=== PATIENT | male | born 1940 | race Caucasian/White ===

== ENCOUNTER 2016-05-18 23:01 | Inpatient (IN) | payer BC ==
--- NOTE | ~2016-05-18 | EGD ---
EGD REPORT [facility] [address] [address] NAME: MOHINDER CASILLAS : [birth year] STATUS : ADM Cherrie PAT#: [id number] AGE: 75 ADM/REG DATE : 05/19/16 MR#: [id number] REPORT SERV DATE: 05/21/16 DICTATED BY: CHETNA CABRERA DATE: 05/21/16 REPORT STATUS : Draft TRANSCRIBED BY: [employer] DATE: 05/21/16 Endoscopy Center Patient Name: Mohinder Casillas Date of : 1940 Attending MD: CHETNA CABRERA, Procedure Date No Time: 05/21/2016 Procedure: Colonoscopy Indications: Hematochezia, Anemia Referring MD: MARY MEYER Medicines: Monitored Anesthesia Care Complications: No immediate complications. Estimated blood loss: None. Procedure: Pre-Anesthesia Assessment: - ASA Grade Assessment: III - A patient with severe systemic disease. After I obtained informed consent, the scope was passed under direct vision. Throughout the procedure, the patient's blood pressure, pulse, and oxygen saturations were monitored continuously. The CF [id number] was introduced through the anus and advanced to the cecum, identified by appendiceal orifice and ileocecal valve. The colonoscopy was performed without difficulty. The patient tolerated the procedure well. The quality of the bowel preparation was good. Findings: The perianal and digital rectal examinations were normal. Internal hemorrhoids were found during retroflexion and were Grade II (internal hemorrhoids that prolapse but reduce spontaneously). A single medium-sized localized angioectasia was found in the cecum. Coagulation for hemostasis using argon plasma at 1 liter/minute and 30 arnold was successful. Multiple small-mouthed diverticula were found in the sigmoid colon and in the descending colon. Impression: - Internal hemorrhoids. - A single colonic angioectasia. Treated with thermal therapy. - Diverticulosis in the sigmoid colon and in the descending colon. Recommendation: - Patient has a contact number available for emergencies. The signs and symptoms of potential delayed complications were discussed with the patient. Return to normal activities tomorrow. Written discharge instructions were provided to the patient. EGD REPORT [address] [address] NAME: MOHINDER CASILLAS : [birth year] STATUS : ADM Cherrie PAT#: [id number] AGE: 75 ADM/REG DATE : 05/19/16 MR#: [id number] REPORT SERV DATE: 05/21/16 DICTATED BY: CHETNA CABRERA DATE: 05/21/16 REPORT STATUS : Draft TRANSCRIBED BY: [employer] DATE: 05/21/16 - Return to previous diet. - Continue present medications. - Repeat colonoscopy is not recommended for screening purposes. - Clear liquids. Advance diet as tolerated. Will sign off. Call with questions. Procedure Code(s): --- Professional --- 62899, Colonoscopy, flexible, proximal to splenic flexure; with control of bleeding (eg, injection, bipolar cautery, unipolar cautery, laser, heater probe, stapler, plasma electroencephalographic technologist) Diagnosis Code(s): --- Professional --- K64.1, Second degree hemorrhoids K57.30, Diverticulosis of large intestine without perforation or abscess without bleeding K55.20, Angiodysplasia of colon without hemorrhage K92.1, Melena D64.9, Anemia, unspecified CPT copyright 2013 [employer]. All rights reserved. The codes documented in this report are preliminary and upon tar pot worker review may be revised to meet current compliance requirements. CHETNA CABRERA, 05/21/2016 7:57 AM Number of Addenda: 0 Note Initiated On: 05/21/2016 7:22 AM Scope Withdrawal Time 0 hours 10 minutes 53 seconds [id number] [id number]
--- NOTE | ~2016-05-18 | HP ---
History And Physical [address] [id number] [facility] [place]. [address] NAME: MOHINDER WEBB : [birth year] STATUS : ADM Cherrie PAT#: [id number] AGE: 75 ADM/REG DATE : 05/19/16 MR#: [id number] REPORT SERV DATE: 05/19/16 DICTATED BY: PETRONA ANDRADE DATE: 05/19/16 REPORT STATUS : Draft TRANSCRIBED BY: MODJenelle DATE: 05/19/16 DATE OF ADMISSION: 05/19/2016 CHIEF COMPLAINT: Abdominal pain and blood in stools. HISTORY OF PRESENT ILLNESS: The patient is a 75-year-old male past with medical history of mesothelioma, hypertension, and reflux, who was recently admitted and discharged from [facility] for small bowel obstruction, went home, was doing okay, but then had repeat episode at home. The patient reported that after he had his first bowel movement after resolution of small bowel obstruction, he had blood in his stools, which he had never had before. Since then, he has not had any repeat episodes, but has been having increased nausea and abdominal discomfort, which is the main reason for coming into the hospital. Symptoms have been constant, moderate severity with dull abdominal pain without radiation associated with nausea, vomiting, and weakness. No fever or chills. No diarrhea. Did have one episode of dark stools when having bowel movement after resolution of small bowel obstruction, but has had repeat obstruction with increased reflux. No shortness of breath. No wheezing. No cough or diaphoresis. Symptoms are worsened with p.o. intake, relieved by pain medications that were given in the emergency room. Symptoms are present, but significantly more improved with abdominal pain. The patient does feel his belly is rumbling. All small bowel obstruction symptoms happened approximately Tuesday, but he said he did have some redness when he wiped last. ADDITIONAL REVIEW OF SYSTEMS: A 10-point review of systems negative except that noted in HPI. PAST MEDICAL HISTORY: Hypertension, reflux, mesothelioma, lung cancer followed by Dr. Barahona. SURGERIES: Cholecystectomy and hernia repair. FAMILY HISTORY: Bladder cancer. SOCIAL HISTORY: Accompanied with spouse. No smoking, alcohol, or illicits. Retired [employer] , which he had asbestos exposure. PHYSICAL EXAMINATION: VITAL SIGNS: The patient's blood pressure 99/54; temperature 98.9; pulse 116, down to 107; respirations initially 22, down to 18; O2 saturations 99% on room air. GENERAL: No acute distress now. Comfortable after pain medications. Well developed, well nourished. EYES: No scleral icterus. EOMI. ENT: Nares patent. Dry mucous membranes. RESPIRATORY: Clear to auscultation. No wheezes, rales, or rhonchi. CV: Mildly tachycardic, but no rubs or gallops. No pedal edema. Cap refill less than 2 seconds. GI: Now positive bowel sounds. Nondistended. Mild tenderness to deep palpation. Does have mild ascites on flanks. History And Physical [address] [address] NAME: MOHINDER WEBB : [birth year] STATUS : ADM Cherrie PAT#: [id number] AGE: 75 ADM/REG DATE : 05/19/16 MR#: [id number] REPORT SERV DATE: 05/19/16 DICTATED BY: PETRONA ANDRADE DATE: 05/19/16 REPORT STATUS : Draft TRANSCRIBED BY: LIS DATE: 05/19/16 : Deferred. MUSCULOSKELETAL: Moves all extremities x4. SKIN: Warm and dry. LYMPH: No cervical or supraclavicular lymphadenopathy. HEME: No bleeding or bruising. NEURO: Alert and oriented. Moves all extremities x4. PSYCH: Appropriate mood and affect. LABORATORY DATA AND IMAGING: CT, diffuse pleural neoplastic disease, evolving high-grade distal small bowel obstruction secondary to small bowel mass, peritoneal carcinomatosis, and osseous metastatic disease. H and H 8 and 25.1, WBC 16.2, platelets 476, BUN and creatinine 20.84 with a glucose of 114. Sodium 141, potassium 4.2, chloride 106, and bicarb 27. LFTs within normal limits. ALLERGIES: NO KNOWN DRUG ALLERGIES. HOME MEDICATIONS: Aspirin, benazepril, diltiazem, Prilosec, Opdivo chemotherapy, vitamin E and garlic, vitamin D3. EKG: None currently on chart. ASSESSMENT AND PLAN: 1. Small bowel obstruction. 2. Likely metastatic cancer. 3. Systemic inflammatory response syndrome. 4. Anemia with blood per rectum. 5. Azotemia. 6. Hypertension. 7. Reflux. PLAN: 1. For SBO, currently declining NG tube. He has no nausea or vomiting at this time. ED has discussed with Dr. Taylor to see in a.m. Okay with NG tube until unless the patient has vomiting. The patient agreeable. We will continue supportive treatment. Concern for new bowel mets on imaging. We will wait for a.m. radiology report for further evaluation. 2. Likely metastatic cancer. Sees Dr. Barahona. Courtesy notification to Dr. Barahona of admission. We will await general surgical evaluation for possible metastatic disease. 3. SIRS, leukocytosis, tachycardia, tachypnea. Symptoms improving with pain control and IV fluids. No signs or symptoms of acute infection. We will monitor supportively. Antibiotics if indicated. 4. Anemia with blood per rectum. Blood per rectum after having bowel movement from initial resolution of SBO, but has had recurrent symptoms. Type and cross. We will do fecal occult blood test. Has been on iron replacement for chronic anemia. 5. Azotemia. IV fluids. 6. Hypertension. Pain control and monitor. 7. Reflux. PPI. History And Physical [address] [address] NAME: MOHINDER WEBB : [birth year] STATUS : ADM Cherrie PAT#: [id number] AGE: 75 ADM/REG DATE : 05/19/16 MR#: [id number] REPORT SERV DATE: 05/19/16 DICTATED BY: PETRONA ANDRADE DATE: 05/19/16 REPORT STATUS : Draft TRANSCRIBED BY: MODL DATE: 05/19/16 All questions answered with the patient and family. DISPOSITION: Pending findings from above and surgery assessment. DDN/MODL Petrona Andrade MD / [id number] CC: MD MARY Lakhani
--- NOTE | ~2016-05-18 | DS ---
Discharge Summary [facility] [address] [place]. [address] NAME: MOHINDER WEBB : 38 STATUS : DIS IN PAT#: [id number] AGE: 75 ADM/REG DATE : 05/19/16 MR#: [id number] REPORT SERV DATE: 05/22/16 DICTATED BY: JELENA JENSEN DATE: 05/21/16 REPORT STATUS : Draft TRANSCRIBED BY: MODL DATE: 05/21/16 ADMISSION DATE: 05/19/2016 DISCHARGE DATE: 05/21/2016 DISCHARGE DIAGNOSES: 1. Small bowel obstruction, resolved. 2. Malignant mesothelioma. 3. Acute blood loss anemia due to gastrointestinal bleed, stable. 4. Gastrointestinal bleed due to angiectasis, status post colonoscopy and endoscopy on 05/20/[address] Levin. 5. Hypertension. 6. SIRS, ruled out. PROCEDURES AND IMAGIN. CT abdomen and pelvis, 05/18/2016, numerous air and fluid-filled distended loops of the jejunum consistent with at least partial obstruction. The duodenum is not distended. There are several centimeters of ileum that are not distended. Possible transition points on the right abdomen anteriorly and in the left abdomen anteriorly. The nodules densities in the right lung base are similar to previous study and appears to be partially decreased in size compared to previous study. 2. KUB, 05/20/2016, impression, no acute intraabdominal process. 3. Upper GI endoscopy, 05/21/2016, impression, normal esophagus. Normal stomach. Normal exam duodenum. 4. Colonoscopy, 05/21/2016, impression, internal hemorrhoids. A single colonic angiectasia. Treated with thermal therapy. Diverticulosis in the sigmoid colon and descending colon. CONSULTS: 1. Surgery, Dr. Taylor on 05/20/2016. 2. GI, CHELA Atwood, 05/20/2016. HOSPITAL STAY: Please refer to history and physical dictated by Dr. Chino Pride on 05/19/2016 for complete admission details as well as consultation note by Dr. Taylor and Arjun Arzate. This patient is a 75-year-old male who presented in [facility]'s Emergency Room with complaints of abdominal pain and blood in stools. The patient does present with a history of mesothelioma, hypertension, and reflux. The patient had recently been discharged from [facility] on 05/19/2016 for abdominal pain. 1. Small bowel obstruction. As noted above, the patient presented with abdominal pain with complaints of bright red rectal bleeding, had recently been discharged from [facility]. Lab work upon admission showed a hemoglobin of 6.5, hematocrit of 20.0. The patient did receive one unit of blood, GI and Surgery were consulted to see the patient. Imaging was obtained which showed partial possible small bowel obstruction. The patient was evaluated by Dr. Taylor on 05/20/2016 which per his recommendations the patient was started on a clear liquid diet and monitored. The Discharge Summary [address] [place]. [address] NAME: MOHINDER WEBB : 39 STATUS : DIS IN PAT#: [id number] AGE: 75 ADM/REG DATE : 05/19/16 MR#: [id number] REPORT SERV DATE: 05/22/16 DICTATED BY: JELENA JENSEN DATE: 05/21/16 REPORT STATUS : Draft TRANSCRIBED BY: LIS DATE: 05/21/16 patient was also evaluated by CHELA Atwood, and per her recommendation the patient did undergo endoscopy and colonoscopy. As noted above, the patient was noted with an AVM which was treated. The patient was then monitored for the next 24 hours postprocedure. No active bleeding noted. Hemoglobin has remained stable. 2. The patient was being started on a clear liquid and advanced to soft diet. The patient has tolerated well, will be discharged home to follow up with his primary care and his oncologist. 3. Malignant mesothelioma. The patient is followed by Dr. Barahona at [facility]. The patient will follow up with Dr. Barahona in one week. 4. Acute blood loss anemia due to GI bleed. Hemoglobin upon admission was 6.5, hematocrit is 20.0. The patient did receive one unit of blood. The patient has been monitored throughout. Upon discharge, hemoglobin is 8.2, hematocrit is 25.3. This has remained stable. 5. GI bleed due to AVM, status post endoscopy and colonoscopy on 05/20/2016. As noted above, the patient was treated for an AVM. The patient has remained stable postprocedure. Hemoglobin has been monitored. The patient will follow up with outpatient lab work in one week. 6. Hypertension. Patient's blood pressure has been monitored during this stay, it has remained stable. 7. SIRS has been ruled out. This discharge took less than 30 minutes. YVON/LIS Jelena Jensen NP / [id number] CC: MD MARY Agarwal
--- NOTE | ~2016-05-18 | EGD ---
EGD REPORT [facility] [address] [address] NAME: MOHINDER CASILLAS : 39 STATUS : ADM Cherrie PAT#: [id number] AGE: 75 ADM/REG DATE : 05/19/16 MR#: [id number] REPORT SERV DATE: 05/21/16 DICTATED BY: CHETNA CABRERA DATE: 05/21/16 REPORT STATUS : Draft TRANSCRIBED BY: [employer] DATE: 05/21/16 Endoscopy Center Patient Name: Mohinder Casillas Date of : 1940 Attending MD: CHETNA CABRERA, Procedure Date No Time: 05/21/2016 Procedure: Upper GI endoscopy Indications: Anemia, Hematochezia Referring MD: MARY MEYER Medicines: Monitored Anesthesia Care Complications: No immediate complications. Estimated blood loss: None. Procedure: Pre-Anesthesia Assessment: - ASA Grade Assessment: III - A patient with severe systemic disease. After obtaining informed consent, the endoscope was passed under direct vision. Throughout the procedure, the patient's blood pressure, pulse, and oxygen saturations were monitored continuously. The GIF [id number] was introduced through the mouth, and advanced to the second part of duodenum. The upper GI endoscopy was accomplished without difficulty. The patient tolerated the procedure well. Findings: The esophagus was normal. The stomach was normal. The examined duodenum was normal. The cardia and gastric fundus were normal on retroflexion. Impression: - Normal esophagus. - Normal stomach. - Normal examined duodenum. Recommendation: - Patient has a contact number available for emergencies. The signs and symptoms of potential delayed complications were discussed with the patient. Return to normal activities tomorrow. Written discharge instructions were provided to the patient. - Clear liquid diet. - Continue present medications. Procedure Code(s): --- Professional --- 11974, Esophagogastroduodenoscopy, flexible, transoral; diagnostic, including collection of specimen(s) by brushing or washing, when performed (separate procedure) EGD REPORT [facility] [address] [place]. [address] NAME: MOHINDER CASILLAS : [birth year] STATUS : ADM Cherrie PAT#: [id number] AGE: 75 ADM/REG DATE : 05/19/16 MR#: [id number] REPORT SERV DATE: 05/21/16 DICTATED BY: CHETNA CABRERA DATE: 05/21/16 REPORT STATUS : Draft TRANSCRIBED BY: [employer] DATE: 05/21/16 Diagnosis Code(s): --- Professional --- D64.9, Anemia, unspecified K92.1, Melena CPT copyright 2013 [employer]. All rights reserved. The codes documented in this report are preliminary and upon farm general manager review may be revised to meet current compliance requirements. CHETNA CABRERA, 05/21/2016 7:56 AM Number of Addenda: 0 Note Initiated On: 05/21/2016 7:23 AM Scope Withdrawal Time 0 hours 0 minutes 0 seconds [address] [place] [address]
--- NOTE | ~2016-05-18 | CN ---
Consultation Report [address] [place]. [address] NAME: MOHINDER WEBB : [birth year] STATUS : ADM Cherrie PAT#: [id number] AGE: 75 ADM/REG DATE : 05/19/16 MR#: [id number] REPORT SERV DATE: 05/20/16 DICTATED BY: SANA DUARTE III DATE: 05/20/16 REPORT STATUS : Draft TRANSCRIBED BY: LIS DATE: 05/20/16 DATE OF CONSULTATION: 05/20/2016 REASON FOR CONSULT: 1. Partial small bowel obstruction. 2. Recommendation regarding surgical management. HISTORY OF PRESENT ILLNESS: We are asked to see this 75-year-old male who was hospitalized for the above reasons. The patient states that his symptoms began last Tuesday after eating breakfast. He described abdominal pain with vomiting. The patient was then admitted to [facility] with partial small bowel obstruction. He was admitted the day prior to this admission. The patient states that he was feeling better and ate chicken soup for dinner, when he again developed severe abdominal pain with nausea. He presented to the emergency room at [facility] and was found to have evidence radiographically for small bowel obstruction. He refused NG tube placement. The patient has a history of mesothelioma and is currently receiving chemotherapy for this. In addition to the above problems, the patient has had several dark stools consistent with blood per rectum. He has required 2 units of blood in transfusion. He has had no hematemesis. PAST MEDICAL HISTORY: 1. History of malignant mesothelioma, with the patient currently undergoing a clinical trial. 2. Hypertension. 3. Gastroesophageal reflux disease. ALLERGIES: NONE. MEDICATIONS: Aspirin, Lotensin, Prilosec, diltiazem. PAST SURGICAL HISTORY: Includes laparoscopic cholecystectomy and hernia repair. SOCIAL HISTORY: The patient is retired and lives locally. He is . He has a history of asbestosis exposure. FAMILY HISTORY: Positive for bladder cancer. PHYSICAL EXAMINATION: GENERAL: This is a male, in no acute distress. He is alert and oriented x3. VITAL SIGNS: Blood pressure 124/70, pulse 97, temperature 97.6. Consultation Report [place] [id number] [facility] [place]. [address] NAME: MOHINDER WEBB : [birth year] STATUS : ADM Cherrie PAT#: [id number] AGE: 75 ADM/REG DATE : 05/19/16 MR#: [id number] REPORT SERV DATE: 05/20/16 DICTATED BY: SANA DUARTE III DATE: 05/20/16 REPORT STATUS : Draft TRANSCRIBED BY: LIS DATE: 05/20/16 HEENT: Unremarkable. Cranial nerves 2 through 12 normal. LUNGS: Clear. CARDIAC: Normal. ABDOMEN: Soft, nontender. The patient is slightly dyspneic at rest. EXTREMITIES: Normal. LABORATORY DATA: CT scan of the abdomen and pelvis shows evidence for partial small bowel obstruction on admission. There are noted to be multiple omental nodules with concern for metastatic disease. Hematocrit 24. Electrolytes and liver enzymes are normal. It should be noted that the patient states he has had several normal bowel movements during the night and feels much better with no abdominal pain currently. ASSESSMENT: 1. 75-year-old male with partial small bowel obstruction, which seems to be resolving clinically. This is most likely secondary to metastatic mesothelioma. 2. Gastrointestinal bleeding, probably also related to metastatic mesothelioma with bowel erosion or involvement. 3. History of malignant mesothelioma. 4. Hypertension. PLAN: The patient is stable at this time. He seems to be improving clinically. He has not had any active evidence for GI bleeding during the night. GI consult is pending for possible endoscopy. At this time, we will let the patient begin a clear liquid diet. His obstruction seems to be resolving clinically and I see no indication of need for surgical intervention at this time. CT-directed biopsy of one of the omental nodules could be entertained if this is felt to be necessary by Medical Oncology. We will follow the patient with you. ADRIAN/LIS Sana Duarte III, M.D. / [id number] CC: MD MARY Lakhani
--- NOTE | ~2016-05-18 | CN ---
Consultation Report [facility] [address]. [address] NAME: MOHINDER CASILLAS : 38 STATUS : ADM Cherrie PAT#: [id number] AGE: 75 ADM/REG DATE : 05/19/16 MR#: [id number] REPORT SERV DATE: 05/20/16 DICTATED BY: JOSEPH MARTELL DATE: 05/20/16 REPORT STATUS : Draft TRANSCRIBED BY: MODJenelle DATE: 05/20/16 GI CONSULTATION DATE OF CONSULTATION: 05/20/2016 REASON FOR CONSULTATION: Evaluation and management of gastrointestinal bleed. HISTORY OF PRESENT ILLNESS: Mr. Casillas is a very pleasant 75-year-old male patient, who has a pertinent history of malignant mesothelioma, noted omental implants on his last CT done on 05/19, presented to [facility] with abdominal pain, has a history of being recently admitted and discharged from [facility] for small-bowel obstruction, went home, was doing okay, repeated episode, thus coming in. He had a bowel movement that was bloody with resolution of his bowel obstruction with a KUB today being normal exam. He had some what he states was bright red blood, as well as he has seen some dark, he feels good now. He has tolerated a clear liquid diet. His hemoglobin on admission was 8, dropped to 6.5. He was transfused with two units packed red blood cells with improvement up to 8.3. He states that he has had a colonoscopy in the past, but it was either in [address] Maribell Childs. He reports it as a negative exam. I have discussed with him that we will pursue EGD and colonoscopy tomorrow. Risks, benefits, alternatives and complications detailed for him to include, but not limited to the risk of bleeding, perforation, infection, reaction to medications, as well as cardiac and pulmonary side effects. He is agreeable to proceed. PAST MEDICAL HISTORY: Positive for hypertension, reflux malignant mesothelioma. PAST SURGICAL HISTORY: Cholecystectomy and hernia repair. FAMILY HISTORY: Noncontributory from a GI standpoint. SOCIAL HISTORY: . No alcohol, tobacco, or illicits. He is retired from the [employer]. ALLERGIES: NOTHING. HOME MEDICATIONS: Aspirin, Lotensin, Taztia, Prilosec, Opdivo, vitamin D, Garlique, and vitamin D3. REVIEW OF SYSTEMS: A ten-point review of systems has been obtained with pertinent positives being addressed in the history of present illness. PHYSICAL EXAMINATION: VITAL SIGNS: Temperature is 98, pulse 94, respirations 20, blood pressure 113/61. NEURO: Reveals an alert, male, sitting up in bed with no focal deficits noted. GENERAL: Cooperative, in no apparent distress. Awake and oriented x3. Consultation Report [address] [place]. [address] NAME: MOHINDER CASILLAS : 38 STATUS : ADM Cherrie PAT#: [id number] AGE: 75 ADM/REG DATE : 05/19/16 MR#: [id number] REPORT SERV DATE: 05/20/16 DICTATED BY: JOSEPH MARTELL DATE: 05/20/16 REPORT STATUS : Draft TRANSCRIBED BY: LIS DATE: 05/20/16 HEAD, EARS, EYES, NOSE, AND THROAT: Anicteric. Pupils equal, round, and reactive to light and accommodation. Normocephalic and atraumatic. NECK: No JVD. No palpable nodes. LUNGS: Diminished throughout with normal respiratory effort exhibited. CARDIOVASCULAR SYSTEM: Regular rate and rhythm. ABDOMEN: Soft, nondistended, nontender with active bowel sounds in all four quadrants. No organomegaly appreciated. EXTREMITIES: No edema. Normal distal pulses. SKIN: Warm, dry, and intact. PERTINENT LABORATORY DATA: Sodium 142, potassium 3.5, BUN is 20, creatinine 0.68, white count 8.2, hemoglobin 8.3, hematocrit 26.4, and platelet count 387 with an INR of 1.2. He had a CT scan on admission that showed numerous nodules in the omentum consistent with metastatic disease, not present on October exam, numerous pleural nodules in the right lung base, partially distended gastric lumen with fluid, multiple loops of ileum and duodenum, not distended, but numerous fluid-filled distended loops of jejunum with a questionable transition point in the right abdomen. ASSESSMENT AND PLAN: 1. Gastrointestinal bleed with melena and bright red blood per rectum. 2. Status post partial small-bowel obstruction, now resolved. 3. Malignant mesothelioma with omental implants. 4. Hypertension. 5. Anemia of acute blood loss status post two units of packed red blood cells. PLAN: 1. Clear liquid diet. N.p.o. after midnight. 2. Bowel prep. 3. Dill and colon on the 3rd. We will follow. MEGHA/LIS Harvey CHELA Arzate / [id number] CC: MD MITCH Agarwal FRANCES
[~2016-05-18 23:01] MED LIST: ALEVE220 MG PO; ALTA2.5 PO; ASAB PO; COREG3 PO; DILT-XR240 MG PO; GARLIC PO; LOTE20 PO; NORV10 PO; PCET PO; PLAVIX PO; PRAVAC PO; PRILO PO; VITE PO
[2016-05-18 23:39] LABS: BASOPHILS 0.2 %; BASOPHILS ABSOLUTE 0.03 10/3/uL (0.0-0.16); EOSINOPHILS 0.1 %; EOSINOPHILS ABSOLUTE 0.01 10/3/uL (0.0-0.53); IMMATURE GRANULOCYTES 0.4 %; IMMATURE GRANULOCYTES ABSOLUTE 0.06 10/3/uL (0.0-0.11); LYMPHOCYTES 7.2 %; LYMPHOCYTES ABSOLUTE 1.17 10/3/uL (0.67-4.30); MEAN CORPUS HGB CONC 31.9 g/dL (32.0-36.0); MEAN CORPUSCULAR HEMOGLOB 28.2 pg (26.0-34.0); MEAN CORPUSCULAR VOLUME 88.4 fL (80-100); MEAN PLATELET VOLUME 9.4 fL (9.2-13.0); MONOCYTES 6.7 %; MONOCYTES ABSOLUTE 1.08 10/3/uL (0.21-1.20); NEUTROPHILS 85.4 %; NEUTROPHILS ABSOLUTE 13.86 10/3/uL (2.02-8.40); PLATELET COUNT 476 10/3/uL (150-400); RBC DISTRIBUTION WIDTH 17.8 % (12.0-16.0); RED CELL COUNT 2.84 10/6/uL (4.7-6.1); WHITE BLOOD CELLS 16.2 10/3/uL (4.5-10.5)
[2016-05-18 23:44] LABS: ER CBC TAT 0 Hrs 07 MinsNP; HEMATOCRIT 25.1 % (40.0-51.0); MANUAL DIFF NO %
[2016-05-18 23:55] LABS: A/G RATIO 0.7 (0.7-1.9); ALBUMIN 2.7 G/DL (3.5-5.0); BUN (BLOOD UREA NITROGEN) 20 MG/DL (6-23); CALCIUM, SERUM 8.2 MG/DL (8.5-10.4); CHLORIDE, SERUM 106 MMOL/L (96-112); CO2 (CARBON DIOXIDE) 27 MMOL/L (24-34); CREATININE 0.84 MG/DL (0.70-1.30); GFR AFRICAN AMERICAN 99 ML/MIN (>=60); GFR NON AFRICAN AMERICAN 85 ML/MIN (>=60); GLOBULIN 3.7 G/DL (2.5-4.1); POTASSIUM, SERUM 4.2 MMOL/L (3.5-5.3); SGOT(AST) 16 U/L (5-40); SGPT(ALT) 16 U/L (5-65); SODIUM, SERUM 141 MMOL/L (135-148); TOTAL BILIRUBIN 0.4 MG/DL (0-1.2); TOTAL PROTEIN 6.4 G/DL (6.0-8.5)
[2016-05-18 23:56] LABS: ALKALINE PHOSPHATASE 61 U/L (45-117); GLUCOSE, SERUM 116 MG/DL (60-99)
[2016-05-19] MEDS ORDERED: NIVOLUMAB IV (00:05)
[2016-05-19] MEDS ORDERED: TAZTIA X1 PO (00:06)
[2016-05-19] MEDS ORDERED: PRILO PO (00:08)
[2016-05-19] MEDS ORDERED: LOTE20 PO (00:08)
[2016-05-19] MEDS ORDERED: VITAMIN E OTC PO (00:10)
[2016-05-19] MEDS ORDERED: GARLIC OTC PO (00:10)
[2016-05-19] MEDS ORDERED: ASAB PO (00:11)
[2016-05-19] MEDS ORDERED: VITAMIN D3 OTC PO (00:11)
[2016-05-19 00:35] LABS: ASCORBIC ACID (UR NOT ORDER) NEG (NEG); BILIRUBIN, URINE NEGATIVE (NEG); ER URINALYSIS TAT 0 Hrs 12 Mins; KETONE, URINE 20 MG/DL (NEG); LEUKOCYTE ESTERASE(NOT OR NEG (NEG); NITRITE (URINE) NEG (NEG); WBC (NOT ORDERED) (RFLEX) 1 (0-5)
[2016-05-19 05:10] LABS: BASOPHILS 0.1 %; BASOPHILS ABSOLUTE 0.01 10/3/uL (0.0-0.16); EOSINOPHILS 0.3 %; EOSINOPHILS ABSOLUTE 0.03 10/3/uL (0.0-0.53); HEMOGLOBIN 6.5 g/dL (13.6-17.8); IMMATURE GRANULOCYTES 0.2 %; IMMATURE GRANULOCYTES ABSOLUTE 0.02 10/3/uL (0.0-0.11); LYMPHOCYTES 12.8 %; LYMPHOCYTES ABSOLUTE 1.35 10/3/uL (0.67-4.30); MEAN CORPUS HGB CONC 32.5 g/dL (32.0-36.0); MEAN CORPUSCULAR HEMOGLOB 28.8 pg (26.0-34.0); MEAN CORPUSCULAR VOLUME 88.5 fL (80-100); MEAN PLATELET VOLUME 9.2 fL (9.2-13.0); MONOCYTES 7.8 %; MONOCYTES ABSOLUTE 0.82 10/3/uL (0.21-1.20); NEUTROPHILS 78.8 %; PLATELET COUNT 396 10/3/uL (150-400); RBC DISTRIBUTION WIDTH 18.1 % (12.0-16.0); RED CELL COUNT 2.26 10/6/uL (4.7-6.1); WHITE BLOOD CELLS 10.5 10/3/uL (4.5-10.5)
[2016-05-19 05:15] LABS: MANUAL DIFF NO %
[2016-05-19 13:43] LABS: HEMATOCRIT 27.7 % (40.0-51.0)
[2016-05-19 16:56] LABS: HEMATOCRIT 28.1 % (40.0-51.0); HEMOGLOBIN 9.2 g/dL (13.6-17.8)
[2016-05-20 01:42] LABS: HEMOGLOBIN 7.6 g/dL (13.6-17.8)
[2016-05-20 01:47] LABS: HEMATOCRIT 23.6 % (40.0-51.0)
[2016-05-20 05:13] LABS: BASOPHILS 0.1 %; BASOPHILS ABSOLUTE 0.01 10/3/uL (0.0-0.16); EOSINOPHILS 0.7 %; EOSINOPHILS ABSOLUTE 0.06 10/3/uL (0.0-0.53); HEMATOCRIT 24.8 % (40.0-51.0); IMMATURE GRANULOCYTES 0.6 %; IMMATURE GRANULOCYTES ABSOLUTE 0.05 10/3/uL (0.0-0.11); INTERNATIONAL NORMAL RATI 1.2 UNITS (-); LYMPHOCYTES 11.5 %; LYMPHOCYTES ABSOLUTE 0.95 10/3/uL (0.67-4.30); MEAN CORPUS HGB CONC 32.3 g/dL (32.0-36.0); MEAN CORPUSCULAR HEMOGLOB 27.8 pg (26.0-34.0); MEAN CORPUSCULAR VOLUME 86.1 fL (80-100); MEAN PLATELET VOLUME 9.4 fL (9.2-13.0); MONOCYTES 10.6 %; MONOCYTES ABSOLUTE 0.87 10/3/uL (0.21-1.20); NEUTROPHILS 76.5 %; NEUTROPHILS ABSOLUTE 6.29 10/3/uL (2.02-8.40); PARTIAL THROMBO TIME 31.4 SEC (22.5-37.2); PLATELET COUNT 387 10/3/uL (150-400); PROTIME (NOT ORD) 15.2 SEC (12.0-14.5); RBC DISTRIBUTION WIDTH 17.3 % (12.0-16.0); WHITE BLOOD CELLS 8.2 10/3/uL (4.5-10.5)
[2016-05-20 05:23] LABS: MANUAL DIFF NO %; RED CELL COUNT 2.88 10/6/uL (4.7-6.1)
[2016-05-20 05:38] LABS: BUN (BLOOD UREA NITROGEN) 20 MG/DL (6-23); CALCIUM, SERUM 7.2 MG/DL (8.5-10.4); CHLORIDE, SERUM 110 MMOL/L (96-112); CO2 (CARBON DIOXIDE) 24 MMOL/L (24-34); CREATININE 0.68 MG/DL (0.70-1.30); GFR AFRICAN AMERICAN 108 ML/MIN (>=60); GFR NON AFRICAN AMERICAN 93 ML/MIN (>=60); GLUCOSE, SERUM 107 MG/DL (60-99); POTASSIUM, SERUM 3.5 MMOL/L (3.5-5.3); SODIUM, SERUM 142 MMOL/L (135-148)
[2016-05-20 06:37] LABS: PROCALCITONIN 0.05 ng/mL (<0.5)
[2016-05-20 10:39] LABS: HEMATOCRIT 26.4 % (40.0-51.0); HEMOGLOBIN 8.3 g/dL (13.6-17.8)
[2016-05-20 15:59] LABS: HEMATOCRIT 27.9 % (40.0-51.0); HEMOGLOBIN 8.8 g/dL (13.6-17.8)
[2016-05-21 05:33] LABS: BUN (BLOOD UREA NITROGEN) 6 MG/DL (6-23); CALCIUM, SERUM 7.1 MG/DL (8.5-10.4); CHLORIDE, SERUM 108 MMOL/L (96-112); CO2 (CARBON DIOXIDE) 25 MMOL/L (24-34); CREATININE 0.57 MG/DL (0.70-1.30); GFR AFRICAN AMERICAN 116 ML/MIN (>=60); GFR NON AFRICAN AMERICAN 100 ML/MIN (>=60); GLUCOSE, SERUM 81 MG/DL (60-99); POTASSIUM, SERUM 3.4 MMOL/L (3.5-5.3); SODIUM, SERUM 142 MMOL/L (135-148)
[2016-05-21 05:36] LABS: INTERNATIONAL NORMAL RATI 1.2 UNITS (-); PROTIME (NOT ORD) 15.2 SEC (12.0-14.5)
[2016-05-21 05:38] LABS: BASOPHILS 0.1 %; BASOPHILS ABSOLUTE 0.01 10/3/uL (0.0-0.16); EOSINOPHILS 0.8 %; EOSINOPHILS ABSOLUTE 0.06 10/3/uL (0.0-0.53); HEMATOCRIT 25.3 % (40.0-51.0); HEMOGLOBIN 8.2 g/dL (13.6-17.8); IMMATURE GRANULOCYTES 0.4 %; IMMATURE GRANULOCYTES ABSOLUTE 0.03 10/3/uL (0.0-0.11); LYMPHOCYTES 11.9 %; LYMPHOCYTES ABSOLUTE 0.94 10/3/uL (0.67-4.30); MEAN CORPUS HGB CONC 32.4 g/dL (32.0-36.0); MEAN CORPUSCULAR HEMOGLOB 28.6 pg (26.0-34.0); MEAN CORPUSCULAR VOLUME 88.2 fL (80-100); MEAN PLATELET VOLUME 9.5 fL (9.2-13.0); MONOCYTES 10.6 %; MONOCYTES ABSOLUTE 0.84 10/3/uL (0.21-1.20); NEUTROPHILS 76.2 %; NEUTROPHILS ABSOLUTE 6.05 10/3/uL (2.02-8.40); PLATELET COUNT 432 10/3/uL (150-400); RED CELL COUNT 2.87 10/6/uL (4.7-6.1); WHITE BLOOD CELLS 7.9 10/3/uL (4.5-10.5)
[2016-05-21 05:44] LABS: MANUAL DIFF NO %
[2016-05-21] MEDS ORDERED: ASAB (15:17)
== END 2016-05-21 16:05 | disposition home or self-care (01) | DRG 388 ==
LOC: ER 23:01 → ER/OF 05-19 03:19 → 4EA 05-19 06:25
PROVIDERS: Internal Medicine; Internal Medicine Gastroenterology; Nurse Practitioner Adult Health; Nurse Practitioner Family; Specialist; Student in an Organized Health Care Education/Training Program
PROC: 30233N1 Transfusion of Nonautologous Red Blood Cells into Peripheral Vein, Percutaneous Approach (ICD-10-PCS; 2016-05-19)
PROC: 0DJ08ZZ Inspection of Upper Intestinal Tract, Via Natural or Artificial Opening Endoscopic (ICD-10-PCS; 2016-05-21)
PROC: 0W3P8ZZ Control Bleeding in Gastrointestinal Tract, Via Natural or Artificial Opening Endoscopic (ICD-10-PCS; principal; 2016-05-21 08:00)
PROC: 0D5H8ZZ Destruction of Cecum, Via Natural or Artificial Opening Endoscopic (ICD-10-PCS; 2016-05-21 08:00)
DX: K56.60 Unspecified intestinal obstruction (principal); E43 Unspecified severe protein-calorie malnutrition; D62 Acute posthemorrhagic anemia; C45.9 Mesothelioma, unspecified; Q27.33 Arteriovenous malformation of digestive system vessel; I10 Essential (primary) hypertension; Z68.21 Body mass index [BMI] 21.0-21.9, adult
CPT/HCPCS: 36415; 74000; 74176; 80048; 80053; 81001; 82272; 83735; 84145; 85014; 85018; 85025; 85610; 85730; 86850; 86900; 86901; 86920; 96374; 96375; 99285; A9270-GY; C9113; J2405; J3010; P9016